=== PATIENT | male | born 1970 | race Caucasian/White ===

== ENCOUNTER 2020-05-26 03:04 | Emergency (ER) | payer OTHER, SELFPAY ==
[2020-05-26] VITALS (9 sets, daily range): BP systolic 136–175; BP diastolic 88–101; PULSE 64–92; RESP 17–22; TEMP 36.7; O2SAT 96–100
--- NOTE | ~2020-05-26 | XR_ITS ---
EXAMINATION: XR chest 2V DATE: 05/26/2020 03:45 INDICATION: Left chest pain. TECHNIQUE: Frontal and lateral views of the chest were obtained. COMPARISON: None. FINDINGS: There is mild scarring at the lung apices. No pleural effusion or pneumothorax. The heart s ize is normal. IMPRESSION: 1. Mild scarring at the lung apices. Reviewed, dictated and finalized at location A.
--- NOTE | 2020-05-26 03:14 | ECG_ITS ---
Measurements Intervals [place] Rate: 85 P: 53 AR: 158 QRS: 20 QRSD: 91 T: 43 QT: 335 QTc: 399 Interpretive Statements SINUS RHYTHM BASELINE WANDER- I, II, III, V3 NORMAL ECG Electronically Signed On 05-26-2020 7:11:05 CDT by Franck Garcia D.O.
[2020-05-26 03:44] LABS: Basophils Absolute Auto 0.1 K/mm3 (0.0-0.1); Basophils Percent Auto 0.6 % (0.2-1.2); Eosinophils Absolute Auto 0.4 K/mm3 (0-0.3); Eosinophils Percent Auto 4.2 % (0-4.4); Hematocrit 49.4 % (42.0-52.0); Hemoglobin 17.5 g/dL (14.0-18.0); Immature Granulocyte Absolute 0.03 K/mm3 (0.00-0.031); Immature Granulocyte Percent A 0.3 % (0-0.5); Lymphocytes Absolute Auto 2.58 K/mm3 (0.9-3.2); Lymphocytes Percent Auto 29.5 % (18.3-44.2); Mean Corpuscular HGB Conc 35.4 g/dl (32-36); Mean Corpuscular Hemoglobin 31.8 pg (26-34); Mean Corpuscular Volume 89.8 fl (80-100); Mean Platelet Volume 10.1 fl (7.4-10.4); Monocytes Absolute Auto 0.7 K/mm3 (0.1-0.6); Neutrophils Percent Auto 57.4 % (45.5-73.1); Platelet Count Result 254 k/mm3 (150-375); Red Cell Distribution Width 12.7 % (11.5-14.5); White Blood Count 8.7 K/mm3 (4.5-10.0)
[2020-05-26 03:52] LABS: INR 0.9; Partial Thromboplastin Time 25.9 SECONDS (22.3-36.8); Prothrombin Time 12.6 Seconds (11.1-14.7)
[2020-05-26 03:55] LABS: Anion Gap 8 mmol/L (8-16); Blood Urea Nitrogen 16 mg/dL (9-20); Carbon Dioxide 28 mmol/L (22-30); Chloride 104 mmol/L (98-107); Estimated CRCL calculation 69 ml/min; Estimated Glomerular Filt Rate > 60; Glucose 103 mg/dL (75-110); Potassium 3.7 mmol/L (3.4-5.0); Sodium 140 mmol/L (137-145)
[2020-05-26 04:07] LABS: Troponin I < 0.012 ng/mL (0.000-0.034)
--- NOTE | 2020-05-26 05:48 | ED.GENADULT ---
HPI - General Adult General Chief complaint: Chest Pain Stated complaint: CP Time Seen by Provider: 05/26/20 03:20 History of Present Illness HPI narrative: Patient is a 49-year-old gentleman who presents to emergency department chief complaint of chest discomfort. Patient states that he felt some tightness in his chest this evening also noticed that he felt some palpitations and felt like he got a little sweaty. Patient denies shortness of breath reports that he has no other medical problems reports has had no prior cardiac work-up in the past. Patient reports his symptoms are improving Related Data Allergies Allergy/AdvReac Type Severity Reaction Status Date / Time No Known Allergies Allergy Verified 05/26/20 03:12 Review of Systems Review of Systems: Narrative: A 10 system review of systems was completed on the patient and is negative except for what is stated in the HPI. Nursing and ancillary documentation was reviewed. PMFSH Social History Social History Gender identity (if verbalized by the patient): Male Comments Patient denies past medical history Social history patient denies illicit drug use Exam Narrative: Exam Narrative: GENERAL: Well-appearing, well-nourished, and in no acute distress. HEAD: Normocephalic, atraumatic. EYES: PERRLA and EOMI. ENT: Nares clear, no rhinorrhea or epistaxis. Mucous membranes moist. NECK: Supple. CHEST: Clear to auscultation. No respiratory distress. HEART: Regular rate and rhythm. No murmur heard. Normal peripheral pulses. ABDOMEN: Soft, nontender, nondistended, normal active bowel sounds. EXTREMITIES: Normal range of motion. No edema. SKIN: Warm, dry, no rash. NEURO: No focal deficits. Alert and oriented x3. PSYCH: Normal mood and affect. Course Vital Signs Vital signs: Vital Signs Temperature 36.7 C 05/26/20 03:10 Pulse Rate 92 05/26/20 03:10 Respiratory Rate 22 H 05/26/20 03:10 Blood Pressure 175/101 H 05/26/20 03:10 Pulse Oximetry 100 05/26/20 03:10 Temperature 36.7 C 05/26/20 03:10 Pulse Rate 69 05/26/20 05:15 Respiratory Rate 19 05/26/20 05:15 Blood Pressure 136/88 05/26/20 05:01 Pulse Oximetry 97 05/26/20 05:15 Medical Decision Making Vital Signs Vital Signs: Vital Signs Temperature 36.7 C 05/26/20 03:10 Pulse Rate 92 05/26/20 03:10 Respiratory Rate 22 H 05/26/20 03:10 Blood Pressure 175/101 H 05/26/20 03:10 Pulse Oximetry 100 05/26/20 03:10 Temperature 36.7 C 05/26/20 03:10 Pulse Rate 69 05/26/20 05:15 Respiratory Rate 19 05/26/20 05:15 Blood Pressure 136/88 05/26/20 05:01 Pulse Oximetry 97 05/26/20 05:15 Lab Data Result diagrams: 05/26/20 03:25 05/26/20 03:25 Labs: Lab Results 05/26/20 05/26/20 05/26/20 Range/Units 03:25 03:25 03:25 WBC 8.7 (4.5-10.0) K/mm3 RBC 5.50 (4.6-6.20) M/mm3 Hgb 17.5 (14.0-18.0) g/dL Hct 49.4 (42.0-52.0) % MCV 89.8 (80-100) fl MCH 31.8 (26-34) pg MCHC 35.4 (32-36) g/dl RDW 12.7 (11.5-14.5) % Plt Count 254 (150-375) k/mm3 MPV 10.1 (7.4-10.4) fl Immature Gran % (Auto) 0.3 (0-0.5) % Neut % (Auto) 57.4 (45.5-73.1) % Lymph % (Auto) 29.5 (18.3-44.2) % [place] % (Auto) 8.0 (2.6-8.5) % Eos % (Auto) 4.2 (0-4.4) % Baso % (Auto) 0.6 (0.2-1.2) % Lymph # (Auto) 2.58 (0.9-3.2) K/mm3 [place] # (Auto) 0.7 H (0.1-0.6) K/mm3 Eos # (Auto) 0.4 H (0-0.3) K/mm3 Baso # (Auto) 0.1 (0.0-0.1) K/mm3 Abs Immat Gran (auto) 0.03 (0.00-0.031) K/mm3 Absolute Neuts (auto) 5.0 (1.3-6.7) K/mm3 Absolute Nucleated RBC 0.0 (0.0-0.012) K/mm3 Nucleated RBC % 0.0 (0.0-0.2) % PT 12.6 (11.1-14.7) Seconds INR 0.9 APTT 25.9 (22.3-36.8) SECONDS Sodium 140 (137-145) mmol/L Potassium 3.7 (3.4-5.0) mmol/L Chloride 104 (98-107) mmol/L Carbon Dioxide 28 (22-30) mmol/L Anion Gap 8 (8-16) mmol/L
== END 2020-05-26 06:00 | disposition home or self-care (01) ==
PROVIDERS: Emergency Provider Emergency Medicine; PCP Family Medicine Adolescent Medicine
DX: R07.89 Other chest pain (principal)
CPT/HCPCS: 36415; 71046; 80048; 84484; 85025; 85610; 85730; 93005; 99284

== ENCOUNTER → 2020-11-09 10:00 | Outpatient (REF) | payer OTHER, SELFPAY | LOC: ANHLAB 10:00 | PROVIDERS: PCP Family Medicine Adolescent Medicine; Visit Provider Nurse Practitioner | DX: L98.9 Disorder of the skin and subcutaneous tissue, unspecified (principal) | CPT/HCPCS: 88304 ==

== ENCOUNTER 2022-07-16 08:42 | Outpatient (CLI) | payer OTHER, SELFPAY | END 2022-07-16 08:43 | disposition home or self-care (01) | PROVIDERS: PCP Family Medicine Adolescent Medicine; Visit Provider Nurse Practitioner Family | DX: M25.571 Pain in right ankle and joints of right foot (principal) | CPT/HCPCS: 73610 ==

== ENCOUNTER 2023-07-29 15:36 | Outpatient (CLI) | payer OTHER, SELFPAY ==
--- NOTE | ~2023-07-29 | US_ITS ---
EXAMINATION: US abdomen complete DATE: 07/29/2023 16:11 INDICATION: Generalized abdominal pain TECHNIQUE: Multiple grayscale and Doppler ultrasound images of the abdomen were obtained. COMPARISON: None FINDINGS: The pancreatic head and body are normal in appearance. The pancreatic tail is not visualized. Normal caliber abdominal aorta measuring 1.9 cm proximally tapering to 1.7 cm in the mid aorta and 1.6 cm i n the distal aorta. The visualized proximal inferior vena cava is normal. Liver has normal echogenici ty and contour, with a smooth surface. No liver lesion identified. No intrahepatic biliary duct dilat ion suspected. Portal venous flow was seen in the hepatopetal, normal direction and has normal Dopple r waveform. The gallbladder is normal in appearance. There is no cholelithiasis. The common bile du ct measures 3 mm, which is normal. . Sonographic Hobbs sign was reported as negative by the sonograp her. There is normal renal contour and echogenicity bilaterally. The right kidney measures 10.1 x 4.5 x 4.6 cm and the left 11.1 x 5.0 x 5.2 cm. There are no focal renal lesions identified. There is n o hydronephrosis. Normal spleen measuring 11.0 cm in maximal length. IMPRESSION: 1. Normal abdominal ultrasound. Reviewed, dictated and finalized at location A.
== END 2023-07-29 15:37 ==
LOC: GOSHIMG 15:37
PROVIDERS: PCP Family Medicine Adolescent Medicine; Visit Provider Nurse Practitioner Family
DX: R10.9 Unspecified abdominal pain (principal)
CPT/HCPCS: 76700